=== PATIENT | female | born 1960 | race African-American/Black ===

== ENCOUNTER 2017-07-17 17:30 | Emergency (ER) | payer MEDICAID ==
[~2017-07-17] VITALS: Ht 162.6 cm; Wt 50.0 kg
[2017-07-17] MEDS ORDERED: HYDROCODONE/ACETAMINOPHEN 5/325MG TABLET PO ONE (19:00)
[2017-07-17] MEDS ORDERED: ONDANSETRON HCL 4MG/2ML VIAL IV ONE (22:30)
[2017-07-17] MEDS ORDERED: MORPHINE SULFATE 4 MG/ML CPJ (NOT FOR IM USE) IV ONE (22:30)
[2017-07-18] MEDS ORDERED: MORPHINE SULFATE 2 MG/ML CPJ (NOT FOR IM USE) IV ONE ×2 (07:45→08:30)
[2017-07-18] MEDS ORDERED: ONDANSETRON HCL 4MG/2ML VIAL IV ONE (07:45)
[2017-07-18] MEDS ORDERED: MORPHINE SULFATE 4 MG/ML CPJ (NOT FOR IM USE) IV NR (08:45)
[2017-07-18] MEDS ORDERED: HYDROCODONE/ACETAMINOPHEN 5/325MG TABLET PO ONE (13:15)
[2017-07-18 13:16] VITALS: BP 124/79
== END 2017-07-18 14:35 | disposition short-term general hospital (02) ==
LOC: ER 17:45
DX: S42.351A Displaced comminuted fracture of shaft of humerus, right arm, initial encounter for closed fracture (principal); Z88.6 Allergy status to analgesic agent; Z88.8 Allergy status to other drugs, medicaments and biological substances; W18.39XA Other fall on same level, initial encounter; Y93.89 Activity, other specified; Y92.89 Other specified places as the place of occurrence of the external cause; Y99.8 Other external cause status
CPT/HCPCS: 73060; 73090; 93922; 96374; 96375; 96376; 99285; J2270; J2405; Z7610; L3670

== ENCOUNTER 2017-07-30 02:45 | Emergency (ER) | payer MEDICAID ==
[~2017-07-30] VITALS: Ht 160 cm; Wt 54.0 kg
[2017-07-30] MEDS ORDERED: CEFTRIAXONE SODIUM 250 MG/VIAL IM ONE (07:15)
[2017-07-30] MEDS ORDERED: AZITHROMYCIN 500 MG TABLET PO ONE (07:15)
[2017-07-30] MEDS ORDERED: HYDROCODONE/ACETAMINOPHEN 5/325MG TABLET PO ONE (07:15)
[2017-07-30 08:12] LABS: HEMATOCRIT. 33.9 % (36.0-48.0); HEMOGLOBIN. 11.3 g/dL (12.0-16.0); MEAN CORPUSCULAR VOLUME 105.1 fL (81.0-99.0); MEAN PLATELET VOLUME 7.2 fl (7.4-10.4); PLATELET 432 x1000/uL (130-400); RED BLOOD CELL COUNT 3.23 mill/uL (4.2-5.4); RED CELL DISTRIBUTION WIDTH 13.6 % (11.6-14.6)
[2017-07-30 08:35] LABS: PLATELET ESTIMATE SLIGHTLY INCREASED
[2017-07-30] MEDS ORDERED: ONDANSETRON HCL 4MG/2ML VIAL IV ONE (09:00)
[2017-07-30] MEDS: ACETAMINOPHEN WITH CODEINE 300/30MG TABLET PO ONE ×2 (09:34→10:09)
[2017-07-30 10:45] VITALS: BP 149/90
[2017-07-30] MEDS ORDERED: ACETAMINOPHEN WITH CODEINE 300/30MG TABLET PO ONE (10:45)
== END 2017-07-30 11:00 | disposition home or self-care (01) ==
LOC: ER 02:45
DX: M79.621 Pain in right upper arm (principal); Z88.6 Allergy status to analgesic agent; Z88.8 Allergy status to other drugs, medicaments and biological substances; Y08.89XA Assault by other specified means, initial encounter; Y93.89 Activity, other specified; Y92.89 Other specified places as the place of occurrence of the external cause; Y99.8 Other external cause status
CPT/HCPCS: 36415; 73060; 81025; 85025; 96372; 99285; J0696; J2405; Z7610